=== PATIENT | male | born 1975 | race Caucasian/White ===

== ENCOUNTER 2020-11-24 07:46 | Emergency (ER) | payer BC, SELFPAY ==
[2020-11-24 08:04] VITALS: BP 179/114; PULSE 78; RESP 18; TEMP 36.6; O2SAT 98; BMI 23.7
[2020-11-24 08:08] VITALS: RESP 18
--- NOTE | 2020-11-24 08:18 | ED_ITS ---
HPI - Back Pain/Injury General: Chief Complaint: Back Pain/Injury Stated Complaint: SIDE/BACK PAIN Time Seen by Provider: 11/24/20 07:59 History of Present Illness: HPI Narrative: Patient is a 45-year-old male comes to the ED with right lower back pain that radiates down hisr right leg. Patient has had the symptoms for approximately 3 months. He saw his PCP and they gave him steroid injection, but that has not given him any relief. He has also been to his Chiropractor multiple times as well and they have not provided any relief. He says the pain is rated a 10 out of 10 and it starts in the right lower back and then radiates down his right leg he describes it as a burning type pain. Denies any bladder or bowel incontinence, bladder or bowel issues, lower extremity weakness or pelvic anesthesia. Associated symptoms: Deny abdominal pain, chills, dysuria, fatigue, fever(s), hematuria, nausea or vomiting Review of Systems Const: Denies: fever(s), chills or fatigue Eyes: Denies: change in vision or eye discomfort ENMT: Denies: throat pain, odynophagia, nasal discharge or nasal congestion Card: Denies: chest pain, palpitations, edema, swelling of feet/ankles, dyspnea on exertion or orthopnea Resp: Denies: dyspnea, productive cough or non-productive cough GI: Denies: abdominal pain, nausea, vomiting, diarrhea, constipation or hematochezia : Denies: flank pain, difficulty urinating, dysuria or hematuria Musc: Reports: back pain (Right lower back with pain radiating down right leg.); Denies: neck pain or extremity swelling Skin/Breast: Denies: rash or new lesions Neuro: Denies: headache(s), numbness in extremities or weakness in extremities PFSH ED PFSH: Family History Mother Diabetes Social History Smoking and tobacco status: current every day smoker cigarettes Packs smoked per day: 1 Alcohol intake: never Adopted: No Caregiver/support person: No Lives independently: No service: No Current occupational status: employed Sexually active: Yes Current gender identity: Male Physical Exam Const: COMMON NORMALS: patient oriented x3 and alert GENERAL APPEARANCE: cooperative; not comfortable (Patient appears uncomfortable and in pain and is standing in exam room.) HENMT: COMMON NORMALS: normocephalic HEAD & SCALP: normocephalic MOUTH: Normal oral and palatal mucosa present THROAT: posterior oropharynx normal and uvula midline Neck/C-Spine: COMMON NORMALS: supple GENERAL: Yes normal visual inspection Resp: COMMON NORMALS: normal respiratory effort, No retractions, No use of accessory muscles and clear to auscultation bilaterally AUSCULTATION: clear to auscultation bilaterally Cardio: COMMON NORMALS: regular rate, regular rhythm, S1 normal heart sound present, S2 normal heart sound present, No gallops present (Cardio), No clicks present (Cardio), No murmurs present (Cardio) and Peripheral pulses 2+ throughout RATE: regular rate RHYTHM: regular rhythm HEART SOUNDS: S1 normal heart sound present and S2 normal heart sound present PERIPHERAL PULSES: Peripheral pulses 2+ throughout GI: COMMON NORMALS: Normal to inspection, nondistended, normoactive bowel sounds present, Soft to palpation, non-tender and no masses PALPATION: Yes Soft to palpation : COMMON NORMALS: Yes no CVA tenderness BLADDER/KIDNEY EXAM: Yes no CVA tenderness Back/Pelvis: COMMON NORMALS: no CVA tenderness LUMBAR SPINE/LOWER BACK: Yes pain with ROM and Yes paraspinal muscle tenderness Lumbar paraspinal muscle tenderness: right Extremity: COMMON NORMALS: normal to inspection Neuro: COMMON NORMALS: patient oriented x3 and moves all extremities SENSORIUM/ORIENTATION: Yes alert Skin: GENERAL SKIN EXAM: dry skin Course Vital Signs: Vital signs: Vital Signs Temperature 97.8 F 11/24/20 08:04 Pulse Rate 98 11/24/20 09:41 Respiratory Rate 18 11/24/20 09:41 Blood Pressure 160/109 11/24/20 09:41 Pulse Oximetry 100 11/24/20 09:41 MDM - Back Pain/Injury MDM Narrative: Medical decision making narrative: Patient is a 45-year-old male comes to the ED with right-sided lower back pain that radiates down into right leg. Denies any known acute injury or trauma to cause pain. Patient has had the symptoms for 3 months. Patient was seen by his PCP and given a steroid injection and did not have any improvement. He is also been seen by his chiropractor multiple times with no improvement. Patient denies any cauda equina symptoms. I placed an order with director case management to refer patient to Dr. Gonzalez the Ortho spine doc for further evaluation. Patient was given a dose of IV morphine, Solu-Medrol and hydrocodone while here in the ED to try to help him with pain. Patient diagnosed with lumbosacral back pain with sciatica and discharged home with a prescription for hydrocodone, methocarbamol and Medrol Dosepak. He was told to ice and rest lower back. Return to ED precautions given. I told patient director case management will contact you in the next several days set up an appointment with orthopedic spine doctor. Patient understood agree with plan. Discharge Plan Discharge Patient Disposition: Home Clinical Impression: Back pain of lumbosacral region with sciatica Condition: Stable Prescriptions: New methylprednisolone 4 mg tablets,dose pack See Rx Instructions .ROUTE .COMPLEX Qty: 21 RF: 0 methocarbamol 750 mg tablet 750 mg PO Q8H Qty: 20 RF: 0 No Action Tylenol Extra Strength 500 mg Tablet 2,000 mg PO PRN RF: 0 ibuprofen 200 mg Tablet 800 mg PO PRN RF: 0 Discharge Orders: Discharge ED (Routine); Ordered 11/24/20 Ordered By: Yoshi Johns Discharge Diet: Regular Discharge Activity: Increase activity as tolerated Patient Instructions: Lumbar Radiculopathy (ED), Opioid Safety Activity Restrictions/Additional Instructions: Follow-up with medical provider as directed. Case management should be contacting you in the next several days to set up an appointment with the orthopedic spine doctor. Take medications as prescribed. Rest and apply cold pack lower back to help with symptoms. Stretch lower back daily as well to help with symptoms. Return to the ER or your medical provider if condition worsens. Please read and understand discharge instructions. If any questions, please ask. Coding Level of Care Code ED Medical Intern for Adrianna Fwd Exam Comprehensive
[2020-11-24 08:37] VITALS: RESP 20
[2020-11-24] MEDS: morphine 4 mg/mL SDV 1 mL IM (08:37)
--- NOTE | 2020-11-24 09:20 | DCPLANNER ---
route service manager was asked to schedule a follow up appointment for patient with ortho to the spine drChristiano faith called the ortho clinic, spoke with Radha, gave clinic patients information. route service manager was told that patients information would be printed and reviewed. Clinic will call patient with appointment information.
[2020-11-24] MEDS: HYDROcodone-acetaminophen 10-325 mg Tablet 1 TAB PO (09:22)
[2020-11-24 09:41] VITALS: BP 160/109; PULSE 98; RESP 18; O2SAT 100
--- NOTE | 2020-11-26 13:31 | DCPLANNER ---
Patient had a follow up appointment scheduled for 11.25.20 at the ortho clinic with Dr. Gonzalez - patient did attend appointment.
== END 2020-11-24 09:43 | disposition home or self-care (01) ==
PROVIDERS: Emergency Provider Physician Assistant
DX: M54.40 Lumbago with sciatica, unspecified side (principal); F17.210 Nicotine dependence, cigarettes, uncomplicated
CPT/HCPCS: 96372; 99283; J2270; J2930

== ENCOUNTER → 2020-11-25 08:18 | Outpatient (BNVA) | payer BC, SELFPAY | PROVIDERS: Referring Provider Physician Assistant; Visit Provider Orthopaedic Surgery | DX: M54.40 Lumbago with sciatica, unspecified side (principal) | CPT/HCPCS: 72110 ==

== ENCOUNTER 2020-12-15 13:55 | Outpatient (CLI) | payer BC, SELFPAY ==
--- NOTE | 2020-12-15 14:12 | MR_ITS ---
WS: [id number] MRI LUMBAR SPINE NONCONTRAST TECHNIQUE: Sagittal T1, T2 and STIR imaging. Axial T1 and T2 imaging. CLINICAL INFORMATION: M54.40 - Lumbago with sciatica, unspecified side COMPARISON: None. FINDINGS: Mild lumbar curve. No acute compression. No high-grade central canal stenosis. Schmorl's nodes in the lower thoracic spine. Chronic anterior wedging at T11 and T12. Disc bulging worse L4-L5 and L5-S1. L1-L2: Normal. L2-L3: Normal. L3-L4: No significant disc bulging. Mild facet arthropathy. Spinal canal and foramen are patent. L4-L5: Mild annular bulging with a small right pericentral protrusion extending into the right subart icular recess. Extruded disc material extends posterior to the L5 vertebral body into the subarticula r recess. Extruded disc material measures 11 x 6 mm. This impinges the traversing right L5 nerve root . Mild central canal stenosis. Mild right L4-5 foraminal narrowing. Additional encroachment on the pr oximal exiting right L5 nerve root inferiorly. L5-S1: Mild disc bulging with a shallow central disc protrusion. Slight impingement traversing right greater than left S1 nerve roots. Mild central canal stenosis. Mild right greater than left foraminal narrowing. Mild facet arthropathy. Visualized pelvic bony structures: Normal. Paravertebral soft tissues: Normal. MR/MR lumbar spine wo con* [id number] IMPRESSION: 1. Mild lumbar curve. No acute compression. No high-grade canal stenosis. 2. Right subarticular disc extrusion L4-5. Extruded disc material extending po sterior to the L5 vertebral body into the subarticular recess. This impinges th e traversing traversing right L5 and proximal exiting right L5 nerve roots. Mil d central canal stenosis at this level. 3. Mild right greater than left L4-5 foraminal narrowing. 4. Shallow central disc protrusion L5-S1 with impingement on traversing right greater than left S1 nerve roots. Mild right greater than left L5-S1 foraminal narrowing. 5. Mild facet arthropathy L4-L5 and L5-S1.
== END 2020-12-15 13:56 | disposition home or self-care (01) ==
PROVIDERS: Visit Provider Orthopaedic Surgery
DX: M54.40 Lumbago with sciatica, unspecified side (principal); M47.816 Spondylosis without myelopathy or radiculopathy, lumbar region; M47.817 Spondylosis without myelopathy or radiculopathy, lumbosacral region; M51.27 Other intervertebral disc displacement, lumbosacral region; M51.26 Other intervertebral disc displacement, lumbar region
CPT/HCPCS: 72148

== ENCOUNTER → 2021-01-04 13:07 | Outpatient (BNVA) | payer BC, SELFPAY | PROVIDERS: Visit Provider Orthopaedic Surgery | DX: Z20.822 Contact with and (suspected) exposure to COVID-19 (principal); M54.40 Lumbago with sciatica, unspecified side | CPT/HCPCS: 87635 ==

== ENCOUNTER 2021-01-07 05:48 | Day surgery (SDC) | payer BC, SELFPAY ==
[2021-01-06 15:15] VITALS: BMI 23.7
[2021-01-07] VITALS (7 sets, daily range): BP systolic 137–160; BP diastolic 81–93; PULSE 82–97; RESP 14–20; TEMP 36.4–37.1; O2SAT 96–100
--- NOTE | 2021-01-07 | SCC_ITS ---
Procedure Done: 1. Right L4/5 laminectomy partial facetectomy and diskectomy 2. Right L5/S1 laminectomy partial facetectomy 17.7 seconds of fluoroscopic guidance, for a cumulative dose of 4.77 mGy, was provided to Dr. Gonzalez by the radiology department. C-arm images of the lumbar spine were saved for the patient's permanent record. [facility]
--- NOTE | 2021-01-07 | XR_ITS ---
WS: [id number] Lumbar spine, C-arm fluoroscopy, 01/07/2021 Clinical Data: Lumbar spine decompression Comparison: Lumbar spine, 11/25/2020. Findings: Dr. Gonzalez decompressed the L4-L5 and L5-S1 disc levels. XR/XR lumbar spine 2-3V* [id number] Impression: Decompression of L4-L5 and L5-S1.
--- NOTE | 2021-01-07 06:37 | W.PM.OPSUD ---
Surgery/Procedure H&P Update DATE OF PROCEDURE: January 07, 2021 DATE H&P PERFORMED: 12/21/20 H&P UPDATE INFORMATION: I have reviewed H&P completed within last 30 days, I have examined patient prior to procedure and No changes to prior documentation PREOP DIAGNOSIS: Right L4/5 disk hernitation PLANNED PROCEDURE: Operation Date: 01/07/21 07:55 Proposed Procedures p Lumbar Spine Decompression m54.40 [id number](Not Applicable) - Jeovanny Gonzalez DO
[2021-01-07] MEDS: sodium chloride 0.9% 1,000 ML 30 ML IV (06:43)
--- NOTE | 2021-01-07 07:18 | ANES.PREANE2 ---
Pre-Anesthetic Assessment Pre-Anesthetic Assessment: Height/Weight: Height 1.96 m Weight 90.718 kg Temp Pulse Resp BP Pulse Ox 98.7 F 82 16 137/81 100 01/07/21 06:13 01/07/21 06:13 01/07/21 06:13 01/07/21 06:13 01/07/21 06:13 Preop Diagnosis: Right L4/5 disk hernitation Proposed Procedure: Operation Date: 01/07/21 07:55 Proposed Procedures p Lumbar Spine Decompression m54.40 [id number](Not Applicable) - Jeovanny Gonzalez, DO Was Beta Devin taken within 24 hours: N/A Was Clonidine taken within 24 hours: N/A Last intake: Intake Last Liquid Date 01/06/21 Last Liquid Time 23:00 Last Solid Date 01/06/21 Last Solid Time 23:00 Social: Social History: Tobacco and No alcohol Exam: Pre-Anes Outpt Exam: alert, oriented x 3 and regular rate & rhythm Airway: Submandibular: WNL Cervical ROM: WNL Dentition: Full Pulmonary: Pulmonary: COPD Musc/skel: Musc/skel: Lower Back Pain Anesthetic Plan: ASA status: 2 Anesthesia: General Risk of > 500 ml blood loss (7ml/kg in children): No Meds/Allergies Current Medications: Current Medications Generic Name Dose Route Start Last Admin Trade Name Freq PRN Reason Stop Dose Admin Sodium Chloride 1,000 mls @ 30 ml s/hr 01/07/21 06:15 01/07/21 06:43 Sodium Chloride 0.9% IV 01/08/21 06:14 30 mls/hr .Q24H JOELLE Administration PFSH Anesthesia PFSH: Family History Mother Diabetes Social History Smoking and tobacco status: current every day smoker cigarettes Packs smoked per day: 1 Alcohol intake: never Adopted: No Caregiver/support person: No Lives independently: No service: No Current occupational status: employed Sexually active: Yes Current gender identity: Male Data Anesthesia Cardiac Studies: No Data to Display
--- NOTE | 2021-01-07 09:27 | P.OP_ITS ---
Operative Report Date of procedure: January 07, 2021 Pre-op Diagnosis: Right L4/5 disk hernitation and R L5/S1 stenosis Post-op diagnosis: same Procedure Done: 1. Right L4/5 laminectomy partial facetectomy and diskectomy 2. Right L5/S1 laminectomy partial facetectomy Surgeon: Jeovanny Gonzalez Anesthesia: General Estimated blood loss (mL): 25 Condition: stable Disposition: PACU Procedure: 1. Right L4/5 laminectomy partial facetectomy and diskectomy 2. Right L5/S1 laminectomy partial facetectomy Patient is brought to the operative suite. After undergoing anesthesia they are placed in the supine position. All areas of impingement are well padded. Patient is then prepped and draped in the normal sterile fashion. A skin incision is made over the L4/5 level. This is confirmed under c-arm guidance. A series of dilators are passed and the tubular retractor is docked on the L4 lamina. A bovie is used to clear the soft tissue off the lamina and the L 4/5 facet joint. A high speed kevin is then used to perform the laminectomy and take down the medial aspect of the L 4/5 facet joint. A kerrison rongeure was then used to take down the remaining lamina and smooth the edge of the laminectomy up to the point where the ligamentum flavum attaches. Attention was then brought to the medial aspect of the facet joint. The remaining medial aspect of the superior and inferior aspect of the facet joint were taken down with the kerrison from the pedicle of L4 to L 5. The facet joint had significant hypertrophy. Attention was then brought to the Ligamentum Flavum. The ligament was taken down from the lamina of L4 to L5 and out medially to the remaining facet joint. The ligament was thickened. The dura was then exposed. The dura was in good repair. The L4 nerve was then traced with a curette out the L4/5 foramen and found to be adequately decompressed. The L5 nerve was traced with a curette around the L5 pedicle. The lateral recess was opened with a kerrison helping to further decompress the L5 nerve. The L5 nerve was retracted medially. The extruded disc fragment was identified and removed with a micropituitary. Wound is then irrigated copiously with saline and surgiflo is used to stop any bleeding. The tubular retractor is removed. A skin incision is made over the L5/S1 level. This is confirmed under c-arm guidance. A series of dilators are passed and the tubular retractor is docked on the L5 lamina. A bovie is used to clear the soft tissue off the lamina and the L 5/S1 facet joint. A high speed kevin is then used to perform the laminectomy and take down the medial aspect of the L 5/S1 facet joint. A kerrison rongeure was then used to take down the remaining lamina and smooth the edge of the laminectomy up to the point where the ligamentum flavum attaches. Attention was then brought to the medial aspect of the facet joint. The remaining medial aspect of the superior and inferior aspect of the facet joint were taken down with the kerrison from the pedicle of L5 to S1. The facet joint had significant hypertrophy. Attention was then brought to the Ligamentum Flavum. The ligament was taken down from the lamina of L5 to S1 and out medially to the remaining facet joint. The ligament was thick. The dura was then exposed. The dura was in good repair. The L5 nerve was then traced with a curette out the L5/S1 foramen and found to be adequately decompressed. The S1 nerve was traced with a curette around the S1 pedicle. The lateral recess was opened with a kerrison helping to further decompress the S1 nerve. S1 nerve was retracted the disc was evaluated did not have any instability to it made a small rent to try to pull out this material and there was no disc material coming out this point elected to leave the disc alone. Wound is then irrigated copiously with saline and surgiflo is used to stop any bleeding. The tubular retractor is removed and the wound is closed with vicryl and monocryl suture. Glue is then used to protect the wound. A sterile dressing is then placed. Patient was then placed i n the supine position and transferred to the PACU in stable condition.
--- NOTE | 2021-01-07 14:23 | ANE.PACU2 ---
Inpatient post-anesthesia follow up: Airway intact: Yes Vital signs: Temperature 98.1 F Pulse Rate 91 Respiratory Rate 18 Blood Pressure 160/91 Pulse Oximetry 96 Oxygen Delivery Me thod Room Air Oxygen Flow Rate 6 Fraction of Inspir ed Oxygen Hydration adequate: Yes Nausea and vomiting: No Pain level: 2 Mental status: Baseline
== END 2021-01-07 10:39 | disposition home or self-care (01) ==
PROVIDERS: Visit Provider Orthopaedic Surgery
PROC: (CPT 63005; principal; 2021-01-07 07:45)
DX: M48.061 Spinal stenosis, lumbar region without neurogenic claudication (principal); M51.26 Other intervertebral disc displacement, lumbar region; J44.9 Chronic obstructive pulmonary disease, unspecified; F17.210 Nicotine dependence, cigarettes, uncomplicated; Z79.52 Long term (current) use of systemic steroids
CPT/HCPCS: 63047; 63048; 72100; 76000; J0330; J0690; J1100; J1170; J2250; J2270; J2405; J2704; J3010; J3490; J7030

== ENCOUNTER 2023-10-15 10:26 | Emergency (ER) | payer BC, SELFPAY ==
[2023-10-15 10:34] VITALS: BP 123/80; PULSE 125; RESP 16; TEMP 37.1; O2SAT 100; BMI 23.7
[2023-10-15 11:13] VITALS: BP 145/95; PULSE 114; O2SAT 100
[2023-10-15 11:19] LABS: Basophils # 0.1 10^3/uL (0.0-0.1); Basophils % 1.1 %; Eosinophils # 0.1 10^3/uL (0.0-0.8); Eosinophils % 0.6 %; Hematocrit 35.4 % (37-53); Lymphocytes # 1.7 10^3/uL (0.8-4.8); Lymphocytes % 17.6 %; Mean Corpuscular HGB Conc 33.6 g/dL (30-55); Mean Corpuscular Volume 95.2 fl (82-101); Mean Platelet Volume 10.1 fL (7.4-10.4); Monocytes # 0.5 10^3/uL (0.2-0.9); Monocytes % 4.7 %; Neutrophils # 7.39 10^3/uL (1.8-7.7); Neutrophils % 75.7 %; Nucleated Red Blood Cells % 0 %; Platelet Count 279 10^3/cmm (157-399); Red Blood Count 3.72 10^6/uL (3.85-5.65); Red Cell Distribution Width 12.5 % (12.1-15.1); White Blood Count 9.77 10^3/uL (3.29-11.43)
--- NOTE | 2023-10-15 11:21 | ED_ITS ---
HPI - Abdominal Pain 2 General: Chief Complaint: Abdominal Pain Stated Complaint: abd pain, blood in stools, weak Time Seen by Provider: 10/15/23 10:52 History of Present Illness: Patient arrives to the ER with complaints of epigastric pain. Patient has 1 episode of dark stool since yesterday thinks he may have an ulcer. Patient been taking a lot of ibuprofen and a lot of Tylenol over the last several days for tooth ache. Patient has had an ulcer in the past that he took antacids for and it resolved itself. But this been a couple years ago. Patient has no real other complaints at the moment. Review of Systems 2 General: Reports: 10 or more systems reviewed and unremarkable except in HPI and below PFSH ED 2 PFSH: Family History Mother Diabetes Social History Smoking and tobacco/nicotine status: current every day tobacco/nicotine user cigarettes Packs smoked per day: 1 Alcohol intake: never Substance/Drug Use: never Adopted: No Caregiver/support person: No Lives independently: No service: No Current occupational status: employed Sexually active: Yes Do you think of yourself as: Straight/Heterosexual Current gender identity: Male Physical Exam 2 Const: COMMON NORMALS: no acute distress, average body habitus, patient oriented x3, no limitations, healthy appearing, alert and well nourished HENMT: COMMON NORMALS: normocephalic, atraumatic, hearing grossly normal bilaterally, external ears normal, Normal external nose present, moist oral mucous membranes and oropharynx normal HEAD & SCALP: normocephalic and atraumatic NOSE: Normal external nose present EXTERNAL EAR: Yes external ears normal Neck/C-Spine: COMMON NORMALS: no JVD Chest: COMMONS NORMALS: normal inspection of the chest and normal palpation of entire chest wall Resp: COMMON NORMALS: normal respiratory effort, No retractions, No use of accessory muscles and clear to auscultation bilaterally AUSCULTATION: clear to auscultation bilaterally Cardio: COMMON NORMALS: no JVD, regular rate, regular rhythm, S1 normal heart sound present, S2 normal heart sound present, No gallops present (Cardio), No clicks present (Cardio), No murmurs present (Cardio) and No rub (Cardio) R ATE: regular rate RHYTHM: regular rhythm HEART SOUNDS: S1 normal heart sound present and S2 normal heart sound present GI: COMMON NORMALS: Normal to inspection, nondistended, normoactive bowel sounds present, Soft to palpation, non-tender, No hepatosplenomegaly present and no masses PALPATION: Yes Soft to palpation and Yes No hepatosplenomegaly present Neuro: COMMON NORMALS: patient oriented x3 SENSORIUM/ORIENTATION: Yes alert Course 2 Vital Signs: Vital signs: Vital Signs Temperature 98.7 F 10/15/23 10:34 Pulse Rate 102 H 10/15/23 12:23 Respiratory Rate 16 10/15/23 10:34 Blood Pressure 111/78 10/15/23 12:23 Pulse Oximetry 98 10/15/23 12:23 Oxygen Delivery Me thod Room Air 10/15/23 10:34 MDM - Abdominal Pain Medical Decision Making CBC CMP urine urine drug screen PT/INR all come back unremarkable. It is thought the patient probably has peptic ulcer disease secondary to high-dose NSAID use patient was instructed not to take any more NSAIDs and we will put him on Pepcid twice a day. Patient should follow-up with his PCP for further evaluation testing. Differential Diagnosis Likely abdominal pain; Unlikely acute appendicitis, calculus of kidney, constipation, diverticulitis, endometriosis, gastroenteritis, pancreatitis or small bowel obstruction Medical Records I reviewed the patient's medical records. Lab Data I reviewed the patient's lab results. 10/15/23 11:05 10/15/23 11:05 Labs/Radiology: Laboratory Results WBC 9.77 10^3/uL (3.29-11.43) 10/15/23 11:05 RBC 3.72 10^6/uL (3.85-5.65) L 10/15/23 11:05 Hgb 11.90 g/dL (11.27-16.99) 10/15/23 11:05 Hct 35.4 % (37-53) L 10/15/23 11:05 MCV 95.2 fl (82-101) 10/15/23 11:05 MCH 32.0 pg (27-33) 10/15/23 11:05 MCHC 33.6 g/dL (30-55) 10/15/23 11:05 RDW 12.5 % (12.1-15.1) 10/15/23 11:05 Plt Count 279 10^3/cmm (157-399) 10/15/23 11:05 MPV 10.1 fL (7.4-10.4) 10/15/23 11:05 Neut % (Auto) 75.7 % 10/15/23 11:05 Lymph % (Auto) 17.6 % 10/15/23 11:05 Rolette % (Auto) 4.7 % 10/15/23 11:05 Eos % (Auto) 0.6 % 10/15/23 11:05 Baso % (Auto) 1.1 % 10/15/23 11:05 Neut # (Auto) 7.39 10^3/uL (1.8-7.7) 10/15/23 11:05 Lymph # (Auto) 1.7 10^3/uL (0.8-4.8) 10/15/23 11:05 Rolette # (Auto) 0.5 10^3/uL (0.2-0.9) 10/15/23 11:05 Eos # (Auto) 0.1 10^3/uL (0.0-0.8) 10/15/23 11:05 Baso # (Auto) 0.1 10^3/uL (0.0-0.1) 10/15/23 11:05 Nucleated RBC % (auto) 0 % 10/15/23 11:05 Nucleated RBCs # 0.0 /100WBC 10/15/23 11:05 PT 13.10 SECONDS (12.1-14.9) 10/15/23 11:05 INR 0.96 (0.8-1.2) 10/15/23 11:05 Sodium 137 mmol/L (136-145) 10/15/23 11:05 Potassium 4.5 mmol/L (3.5-5.1) 10/15/23 11:05 Chloride 103 mmol/L (98-107) 10/15/23 11:05 Carbon Dioxide 24 mmol/L (22-29) 10/15/23 11:05 Anion Gap 14.5 (5-19) 10/15/23 11:05 BUN 31 mg/dL (6-20) H 10/15/23 11:05 Creatinine 1.0 mg/dL (0.7-1.2) 10/15/23 11:05 GFR Calculation 79.8 mL/min (90-130) L 10/15/23 11:05 Glucose 173 mg/dL (65-115) H 10/15/23 11:05 Calculated Osmolality 295 mOsm/kg (285-295) 10/15/23 11:05 Calcium 9.1 mg/dL (8.5-10.5) 10/15/23 11:05 Total Bilirubin 0.3 mg/dL (0.15-1.2) 10/15/23 11:05 AST 18 U/L (0-40) 10/15/23 11:05 ALT 15 U/L (0-41) 10/15/23 11:05 Alkaline Phosphatase 42 U/L (40-130) 10/15/23 11:05 Total Protein 6.8 g/dL (6.6-8.7) 10/15/23 11:05 Albumin 4.2 g/dL (3.5-5.2) 10/15/23 11:05 Globulin 2.6 g/dL (1.3-4.6) 10/15/23 11:05 Urine Color Yellow (Yellow) 10/15/23 11:27 Urine Appearance Clear (CLEAR) 10/15/23 11:27 Urine pH 5 (5-7) 10/15/23 11:27 Ur Specific [place] 1.020 (1.005-1.030) 10/15/23 11:27 Urine Protein Neg (Negative) 10/15/23 11:27 Urine Glucose (UA) Norm (Normal) 10/15/23 11:27 Urine Ketones Negative (Negative) 10/15/23 11:27 Urine Blood Neg (Negative) 10/15/23 11:27 Urine Nitrate Negative (Negative) 10/15/23 11:27 Urine Bilirubin Neg (Negative) 10/15/23 11:27 Urine Urobilinogen Neg mg/dL (Negative) 10/15/23 11:27 Ur Leukocyte Esterase Negative (Negative) 10/15/23 11:27 Acetaminophen < 5.0 ug/mL (10-30) L 10/15/23 11:05 All radiology interpretation(s) finalized by discharge Discharge Plan Discharge Patient Disposition: Home Clinical Impression: Peptic ulcer disease Condition: Stable Prescriptions: New Pepcid 20 mg tablet 20 mg PO BID Qty: 60 0RF Discontinued ibuprofen 200 mg Tablet 800 mg PO PRN No Action hydrocodone-acetaminophen 5-325 mg tablet 1 - 2 tab PO .Q4-6H PRN (Reason: pain) 7 Days Qty: 40 0RF acetaminophen [Tylenol Extra Strength] 500 mg Tablet 2,000 mg PO PRN Discharge Orders: Discharge ED (Routine); Ordered 10/15/23 Ordered By: Kevin Loyola Patient Instructions: Peptic Ulcer (ED), Diet for Stomach Ulcers and Gastritis (ED) Activity Restrictions/Additional Instructions: Please take all your medicine as directed. Please follow-up with your friend proximal physician within neck 7 to 10 days for further evaluation and testing. Any Please limit the use of anti-inflammatory such as ibuprofen Motrin Aleve or aspirin. 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
[2023-10-15 11:33] LABS: Add Urine Microscopic? NO; Charge for UA Resulting for Rev
[2023-10-15 11:34] LABS: INR 0.96 (0.8-1.2)
[2023-10-15 11:42] LABS: Acetaminophen < 5.0 ug/mL (10-30); Alanine Aminotransferase 15 U/L (0-41); Albumin Level 4.2 g/dL (3.5-5.2); Alkaline Phosphatase 42 U/L (40-130); Anion Gap 14.5 (5-19); Aspartate Amino Transferase 18 U/L (0-40); Blood Urea Nitrogen 31 mg/dL (6-20); Calcium 9.1 mg/dL (8.5-10.5); Carbon Dioxide 24 mmol/L (22-29); Chloride 103 mmol/L (98-107); Globulin 2.6 g/dL (1.3-4.6); Glomerular Filtration Rate 79.8 mL/min (90-130); Glucose 173 mg/dL (65-115); Osmolality Calculated 295 mOsm/kg (285-295); Potassium 4.5 mmol/L (3.5-5.1); Sodium 137 mmol/L (136-145); Total Bilirubin 0.3 mg/dL (0.15-1.2); Total Protein 6.8 g/dL (6.6-8.7)
[2023-10-15 11:52] LABS: Bilirubin Urine Neg (Negative); Blood Urine Neg (Negative); Glucose Urine UA Norm (Normal); Ketones Urine Negative (Negative); Leukocyte Esterase Urine Negative (Negative); Nitrate Urine Negative (Negative); Protein Urine Neg (Negative); Urine Appearance Clear (CLEAR); Urine Color Yellow (Yellow); Urobilinogen Urine Neg (Negative); pH Urine 5 (5-7)
[2023-10-15 11:58] VITALS: BP 114/79; PULSE 116; O2SAT 100
[2023-10-15 12:23] VITALS: BP 111/78; PULSE 102; O2SAT 98
== END 2023-10-15 12:24 | disposition home or self-care (01) ==
PROVIDERS: Emergency Provider Emergency Medicine
DX: K27.9 Peptic ulcer, site unspecified, unspecified as acute or chronic, without hemorrhage or perforation (principal); F17.210 Nicotine dependence, cigarettes, uncomplicated
CPT/HCPCS: 80053; 80307; 81003; 85025; 85610; 99283

== ENCOUNTER 2024-06-18 06:28 | Outpatient (CLI) | payer BC, SELFPAY ==
--- NOTE | 2024-06-18 06:33 | ECG_ITS ---
[facility] Date: 2024-06-18 Pat Name: Rachid Sanchez Department: Room: Gender: Male Assistant Banquet Manager: : 1975 Requested By: Felipe Olivares Order Number: [id number] Becerra MD: Jae Sapp M.D. Interpretive Statements Lung unchanged pre/post procedure; Intraprocedure shortess of breath; Symptoms resoled by discharge PROCEDURE: At the baseline, the patient's blood pressure was 136/80 with a heart rate of 79. The baseline electrocardiogram showed normal sinus rhythm with normal ST-Ts.. The patient exercised for 8 minutes and 2 seconds on a standard [place] protocol. Patient attained a maximum heart rate of 153 beats per minute(89% of the maximum predicted heart rate) with a blood pressure at the peak exercise of 198/71 mm Hg. The EKG at the peak exercise revealed no significant changes. Patient did not have any chest pain or any significant cardiac arrhythmias with the exercise During the recovery phase, there were no new changes. Blood pressure at the end of the recovery phase was 176/87 mm Hg with a heart rate of 89 per minute. CONCLUSION: 1. No significant EKG changes with the treadmill exercise 2. No exercise-induced chest pain or cardiac arrhythmia 3. Fair exercise tolerance, attained a maximum of 10.2 METs Electronically Signed On 06-21-2024 09:16:28 [employer] by Jae Sapp M.D. [email or web address]
--- NOTE | 2024-06-18 06:34 | NMCV_ITS ---
NM alycia perf SPECT r/s* [id number] Rachid Sanchez Age: 48 Gender: M : 1975 Exam Date: 06/18/2024 07:23 Ordering Phys: Felipe Olivares MD Technologist: LUCA Ayala Exam Location: [facility] Indications: cp STRESS TEST Please see separate stress test report in [facility] for full findings IMAGE PROTOCOL Rest/Stress 1 Exercise Day Radiopharmaceutical Dose (mCi) Administration Site Administered by Rest: Tc-99m 10.9 IV Deepali Duncan, SERVICE MECHANIC Sestamibi Stress:Tc-99m 32.4 IV Deepali Agostogle, SERVICE MECHANIC Sestamibi Rest: 18-Jun-2024 60 Discovery 630 Stress: 18-Jun-2024 15 Discovery 630 Radiopharmaceutical was injected at 87 % maximum heart rate.images obtained in supine and prone position. SPECT RESULTS Technical Quality: Good Raw Data Analysis: Normal Image Corrections: No attenuation or motion correction applied Summed Stress Score: 0 Summed Rest Score: 0 Summed Difference Score: 0 PERFUSION FINDINGS Fairly uniform myocardial tracer uptake. No significant Perfusion normalities. FUNCTIONAL RESULTS (calculated via Gated SPECT) Stress Image LV EF (%): 64 Stress EDV (mL):119 TID: 0.91 Stress ESV (mL):43 FUNCTIONAL FINDINGS: Segmental wall motion analysis revealing no gross wall motion abnormalities IMPRESSIONS 1. Myocardial perfusion imaging revealing uniform tracer uptake with no significant perfusion abnormalities 2. Normal LV ejection fraction 64% 3. LV wall motion analysis revealing no gross wall motion abnormalities. 4. Normal LV volume Low probability for coronary ischemia, based on the above findings No similar previous studies are available for comparison Dr Jae Sapp MD [facility] (Electronically Signed) Final Date: 18 June 2024 09:46 S
[2024-06-18 08:34] VITALS: BP 185/86; PULSE 92
== END 2024-06-18 06:29 | disposition home or self-care (01) ==
PROVIDERS: PCP Internal Medicine; Visit Provider Internal Medicine
DX: R07.89 Other chest pain (principal); R06.02 Shortness of breath
CPT/HCPCS: 36415; 78452; 93017; 96374; A9500